=== PATIENT | female | born 1980 | race Caucasian/White ===

== ENCOUNTER 2025-08-24 17:56 | Emergency (ER) | payer MEDICAID, SELFPAY ==
[2025-08-24 18:08] VITALS: BP 143/93; PULSE 60; RESP 19; TEMP 36.6; O2SAT 96; BMI 25.1
--- NOTE | 2025-08-24 18:52 | PD.EDWOUND ---
ED Wound/Laceration-RME/HPI General Chief Complaint: Wound/Laceration Stated Complaint: LACERATION TO THUMB ON LEFT HAND Time Seen by Provider: 08/24/25 18:36 Arrival date/time: 08/24/25 17:56 This is a case of 45-year-old female with no medical history came into the emergency room due to left thumb laceration patient was cutting food accidentally cut his left thumb by a knife sustaining a 3 cm laceration no other injury noted patient tetanus shot is not up-to-date Limitations: no limitations Related Data Previous Rx's ?Medication ?Instructions ?Recorded Atorvastatin Calcium 10 mg PO HS #30 tabs 06/12/16 aspirin 81 mg chewable tablet 81 mg PO QDAY ##30 06/12/16 carvedilol 3.125 mg tablet 3.125 mg PO BID #60 tabs 06/12/16 lisinopril 20 mg tablet 40 mg (2 x 20 mg) PO QDAY #30 tabs 06/12/16 spironolactone 25 mg tablet 25 mg PO QDAY #30 tabs 06/12/16 (Aldactone) Hydrocodone/Acetaminophen * (NORCO 1 tab PO Q6H PRN pain #10 tabs 06/25/16 5/325 *) pantoprazole 40 mg tablet,delayed 40 mg PO QDAY #30 tabs 03/14/23 release (Protonix) cephalexin 500 mg capsule 500 mg PO Q8H #30 caps 08/24/25 ibuprofen 800 mg tablet 800 mg PO Q8H PRN pain #20 tabs 08/24/25 mupirocin 2 % topical ointment 1 applic topical TID #22 grams 08/24/25 (Centany) Allergies Allergy/AdvReac Type Severity Reaction Status Date / Time No Known Allergies Allergy Verified 08/24/25 17:59 Review of Systems Review of Systems Systems Reviewed: All systems reviewed, normal except as documented Constitutional Constitutional: Reports system reviewed and no additional complaints, except as documented and Reports as per HPI Cardiovascular Cardiovascular: Reports system reviewed and no additional complaints, except as documented and Reports as per HPI Respiratory Respiratory: Reports system reviewed and no additional complaints, except as documented and Reports as per HPI Gastrointestinal Gastrointestinal: Reports system reviewed and no additional complaints, except as documented and Reports as per HPI Musculoskeletal Musculoskeletal: Reports system reviewed and no additional complaints, except as documented and Reports as per HPI Neurologic Neurologic: Reports system reviewed and no additional complaints, except as documented and Reports as per HPI Past Medical History Past Medical History CARDIAC: Positive Cardiac Disorders, Hypercholesterolemia, Congestive Heart Failure, Edema and Hypertension RESPIRATORY: Negative Chronic Obstructive Pulmonary Disease (COPD) GASTROINTESTINAL: Positive Obesity GENITOURINARY: Negative Renal Disease ENDOCRINE: Negative Diabetes Mellitus Type 1 or Diabetes Mellitus Type 2 HEMATOLOGIC: Negative Blood Disorders OTHER HISTORY: Positive Hospitalization; Negative Blood Transfusions, Anesthesia Reactions or Cancer Surgical History SURGICAL: Positive Pacemaker and Auto Implanted Cardiovert Defib Social History SMOKING STATUS: Current every day smoker SECOND HAND EXPOSURE: No SUBSTANCE USE: marijuana ED Exam General Limitations: Present no limitations General appearance: Present alert, in no apparent distress and other Head Head exam: Present atraumatic, normocephalic and normal inspection Eye Eye exam: Present normal appearance, PERRL and EOMI ENT ENT exam: Present normal exam, normal oropharynx and mucous membranes moist Neck Neck exam: Present normal inspection, full ROM and trachea midline; Absent tenderness, meningismus, lymphadenopathy or thyromegaly Chest Chest inspection: Present normal inspection and symmetric chest wall rise; Absent tenderness Respiratory Respiratory exam: Present normal lung sounds bilaterally; Absent respiratory distress, wheezes, stridor, accessory muscle use or prolonged expiratory phase Cardiovascular Cardiovascular exam: Present regular rate, normal rhythm and normal heart sounds; Absent bradycardia, tachycardia, irregular rhythm, systolic murmur or diastolic murmur Abdominal Exam Abdominal exam: Present soft and normal bowel sounds; Absent distention, tenderness, guarding, rebound, rigidity, diminished bowel sounds, hyperactive bowel sounds, hypoactive bowel sounds or organomegaly Extremities Exam Extremities exam: Present normal inspection and full ROM Back Exam Back exam: Present normal inspection and full ROM Neurological Exam Neurological exam: Present alert, oriented X3, CN II-XII intact, normal gait and reflexes normal; Absent motor sensory deficit Psychiatric Psychiatric exam: Present normal affect and normal mood Skin Skin exam: Present warm, dry, intact, normal color and other (Patient sustained 3 cm linear laceration distal left thumb minimal bleeding no foreign body no tendon no bone injury no cellulitis no abscess ROM intact neurovascular intact) Course Quality Measures none Orders Category Date Time Status Ibuprofen Tab [Motrin Tab] Med 08/24/25 18:50 Discontinued 800 mg PO X1 ONE TET,DIP/PERT AC (Adult)-Tdap [Boostrix Adult (Tdap) Med 08/24/25 18:50 Discontinued Vacc] 0.5 ml IMI .ONCE ONE cephALEXin [Keflex] Med 08/24/25 18:50 Discontinued 500 mg PO X1 ONE Vital Signs Vital signs: Vital Signs Temperature 97.9 F 08/24/25 18:08 Pulse Rate 60 08/24/25 18:08 Respiratory Rate 19 08/24/25 18:08 Blood Pressure 143/93 H 08/24/25 18:08 Pulse Oximetry (%) 96 08/24/25 18:08 Oxygen Delivery Method Room Air 08/24/25 18:08 Oxygen saturation is 96 percent in room air normal PROCEDURES: Laceration Laceration 1: Site: other (Left thumb) Side (If applicable): left Size (cm): 3 Description: linear Depth: simple, single layer Local Anesthetic: lidocaine 1% Pre-repair: wound explored, irrigated extensively and deep structures intact Skin layer closed with: nylon Suture size (cm): 4-0 Number of sutures: 6 Wound / Laceration MDM Narrative MDM Narrative:: This is a case of 45-year-old female with no medical history came into the emergency room due to left thumb laceration patient was cutting food accidentally cut his left thumb by a knife sustaining a 3 cm laceration no other injury noted patient tetanus shot is not up-to-date physical examination patient is awake alert oriented not in distress nontoxic looking patient noted to have 3 cm laceration on the distal left thumb minimal bleeding no foreign body no bone or tendon injury no cellulitis no abscess ROM intact neurovascular intact laceration repair was performed patient tolerated well the procedure procedure done by [place] protocol and via sterile technique patient was prescribed with cephalexin and mupirocin to prevent infection and ibuprofen for pain patient will follow-up with PCP in 2 days for reevaluation and 10 days for removal of suture for any worsening symptoms or any signs and symptoms of infection return precaution in the emergency room was advised to finish the course of antibiotic keep the wound clean and dry advised Patient was discharged with comfortable condition walking with stable gait. Patient verbalized no further complains explained diagnosis and answered patient question. Patient is comfortable with the proposed management plan including the need to follow up with his/her primary care physician and any specialist if applicable Discussed patient for any urgent condition or worsening sx, He/She needed to go to emergency room immediately or call 911. Patient acknowledge the responsibility to follow up as instructed and to monitor her/his symptoms. For any persistence of the symptoms for more than 3-5 days return precaution advised. Discussed the result of the test and was given printed discharge instruction Patient data External records reviewed:: [facility] previous records Clinical information provided by:: patient Social determinants that could affect healthcare access:: none Patient has the following chronic illnesses:: None How is presenting disease/condition affected by chronic disease/condition?: no chronic disease Evaluation data The following diagnostics were reviewed and interpreted by me:: other (specify) (None) Lab and/or radiology exams considered but not ordered:: None Interpretation Summary: None Medications / Prescriptions Medications or Prescriptions considered but not ordered:: Given Medication administrations:: Medication Administration History Discontinued Medications Cephalexin HCl (Cephalexin 250 Mg Capsule) 500 mg PO X1 ONE Stop: 08/24/25 18:51 Diphtheria/Tetanus/Acell Pertussis (Diphth,Pertuss(Acell),Tet Vac 0.5 Ml Syr- Adult) 0.5 ml IMi .ONCE ONE Stop: 08/24/25 18:51 Ibuprofen (Ibuprofen Tab 400 Mg Tablet) 800 mg PO X1 ONE Stop: 08/24/25 18:51 Given Consultations Consultation(s) initiated? (list below): No Diagnosis Wound Differential Diagnosis: laceration Most likely diagnosis given after review of the tests above:: Thumb laceration Admission Indicated Admission indicated?: not indicated Explain why admission is indicated or not indicated:: Not indicated Admission Request Was there a request for admission?: No Disposition Plan Disposition Plan: Discharge Discharge Attestation Discharge Attestation: The patient and all family members were given an opportunity to ask questions and understood the discharge instructions. Discharge instructions specifically effects, indications for sooner follow up or return to the emergency department, and the expected course of current diagnosis. Patient condition: Stable Discharge Plan Plan Patient Disposition: HOME (Self Care) Patient condition on transfer: Stable Prescriptions/Referrals Prescriptions/Med Rec: New cephalexin 500 mg capsule 500 mg PO Q8H Qty: 30 0RF ibuprofen 800 mg tablet 800 mg PO Q8H PRN (Reason: pain) Qty: 20 0RF mupirocin [Centany] 2 % ointment 1 applic topical TID Qty: 22 0RF No Action Atorvastatin Calcium 10 MG tablet 10 mg PO HS Qty: 30 0RF lisinopril 20 MG tablet 40 mg PO QDAY Qty: 30 0RF spironolactone [Aldactone] 25 MG tablet 25 mg PO QDAY Qty: 30 0RF carvedilol 3.125 MG tablet 3.125 mg PO BID Qty: 60 0RF aspirin 81 MG tablet,chewable 81 mg PO QDAY Qty: 30 0RF Hydrocodone/Acetaminophen * (NORCO 5/325 *) 1 TAB tablet 1 tab PO Q6H PRN (Reason: pain) Qty: 10 0RF pantoprazole [Protonix] 40 mg tablet,delayed release (DR/EC) 40 mg PO QDAY Qty: 30 0RF Problem List Clinical Impression: Laceration of left thumb Patient/Caregiver Discharge Instructions Education Materials: Suture Care, ED Laceration, Hand: All Closures Additional Instructions: Follow-up with your primary care physician in 2 days for reevaluation and 10 days for removal of suture worsening symptoms or any emergent concerns such as redness swelling discharge from the wound bleeding fever chills return to the emergency room immediately or call 911 finish the course of antibiotic keep the wound clean and dry Print Language: Slovak Stand Alone Forms: Justyna Award Info., Patient Portal Info Letter PA/SOLAR BUSINESS DEVELOPER Supervising Physician PA/[employer] BUSINESS DEVELOPER Supervising Physician: Dr. Prince
[2025-08-24] MEDS: IBUPROFEN TAB 400 MG TABLET 800 MG PO (19:07)
[2025-08-24] MEDS: DIPHTH,PERTUSS(ACELL),TET VAC 0.5 ML SYR- ADULT IMi (19:08)
== END 2025-08-24 19:26 | disposition home or self-care (01) ==
PROVIDERS: Emergency Provider Emergency Medicine; PCP Family Medicine
DX: S61.012A Laceration without foreign body of left thumb without damage to nail, initial encounter (principal); W26.0XXA Contact with knife, initial encounter
CPT/HCPCS: 12002; 90471; 90715; 99282; A9270

== ENCOUNTER → 2025-09-22 | Outpatient (CLI) | payer MEDICAID, SELFPAY ==
--- NOTE | 2025-09-22 12:30 | XR_ITS ---
Examination: Breast ultrasound, unilateral, right Date and time of exam: September 22, 2025, 1326 hours INDICATIONS: Outside mammogram 07/22/2025 focal asymmetry 12 mm upper outer quadrant right breast posterior depth Technique: Real-time cole scale ultrasonographic imaging performed right breast including all 4 quadrants as well as nipple retroareolar and axillary region. Findings: 3:00 cyst 4 x 3 mm 5:00 cyst 6 x 7 mm 9:00 cyst 4 x 4 mm 10:00 cyst 4 x 5 mm No solid nodules IMPRESSION: BI-RADS Category 2: Benign findings
--- NOTE | 2025-09-22 13:00 | XR_ITS ---
Examination: Diagnostic digital mammography, unilateral, right Computer aided detection 3-D breast Tomosynthesis, unilateral Date and time of exam: September 22, 2025, 1353 hours INDICATIONS: Outside mammogram 07/22/2025 12 mm focal asymmetry upper outer right breast posterior depth Technique: Nonmagnified MLO, CC views of the left breast have been obtained, reconstructed from 3-D Tomosynthesis images. R2 computer aided detection program utilized for evaluation of suspicious masses and/or abnormal calcifications. 3-D Tomosynthesis images obtained. Findings: Right the breast is heterogeneously dense, which may obscure small masses 10 mm focal asymmetry is confirmed on the spot compression views upper outer right breast lobular margins There are benign cysts in the right breast on the ultrasound study today with no solid nodules depicted Impression: BI-RADS category 3: Probably benign findings 3-month right mammogram follow-up is needed as well as 3-month right breast sonogram with a radiologist in attendance
== END | disposition home or self-care (01) ==
LOC: CDIM 13:07
PROVIDERS: Referring Provider Physician Assistant Medical; Visit Provider Physician Assistant Medical
DX: R92.331 Mammographic heterogeneous density, right breast (principal)
CPT/HCPCS: 76641; 77061; 77065; G0279